=== PATIENT | male | born 1970 | race Caucasian/White ===

== ENCOUNTER 2020-07-20 12:57 | Emergency (ER) | payer OTHER ==
[2020-07-20] MEDS ORDERED: Ketorolac 60 MG/2 ML SDV IM ONE (13:06)
[2020-07-20 13:08] VITALS: BP 146/88; PULSE 66
--- NOTE | 2020-07-20 13:40 | EDM.PDOC ---
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 He can hardly walk on it due to the pain. NO previous injuries to the foot. Right Foot Pain Score (Numeric/FACES): 8 - Related Data Allergies Allergy/AdvReac Type Severity Reaction Status Date / Time Penicillins Allergy Hives Verified 07/20/20 13:10 Home Meds: Home Meds Hydrocodone/Acetaminophen [Hydrocodon-Acetaminophen 5-325] 1 - 2 each PO Q6H #12 tablet 07/20/20 [Rx] Past Medical History - Past Health History Medical/Surgical History: Denies Medical/Surgical History - Past Surgical History GI Surgical History: Reports: Hernia, Inguinal Social & Family History - Family History Family Medical History: Noncontributory - Tobacco Use Smoking Status *Q: Current Every Day Smoker Years of Tobacco use: 30 Packs/Tins Daily: 1 Review of Systems - Review of Systems Review Of Systems: See Below Constitutional: Reports: No Symptoms Eyes: Reports: No Symptoms Ears: Reports: No Symptoms Nose: Reports: No Symptoms Mouth/Throat: Reports: No Symptoms Respiratory: Reports: No Symptoms Cardiovascular: Reports: No Symptoms GI/Abdominal: Reports: Decreased Appetite Genitourinary: Reports: No Symptoms Musculoskeletal: Reports: Foot Pain (right) Skin: Reports: No Symptoms Neurological: Reports: No Symptoms Psychiatric: Reports: No Symptoms ED EXAM, GENERAL - Physical Exam Exam: See Below Exam Limited By: No Limitations General Appearance: Alert, WD/WN, No Apparent Distress (Adult male, obviously in pain with exam.) Ears: Hearing Grossly Normal Nose: Normal Inspection Throat/Mouth: Normal Voice Head: Atraumatic, Normocephalic Neck: Normal Inspection Respiratory/Chest: No Respiratory Distress Cardiovascular: Other (Deferred) GI/Abdominal: Soft (Male) Exam: Deferred Rectal (Males) Exam: Deferred Back Exam: Normal Inspection Extremities: Other (Note bruusing and tenderness to anterior right foot on exam, pulses palpable. Pain with ROM.) Neurological: Alert, Oriented, CN II-XII Intact Psychiatric: Normal Affect, Normal Mood Skin Exam: Warm, Dry, Intact, Normal Color Lymphatic: No Adenopathy Course - Vital Signs Text/Narrative:: The patient was seen by the [facility]. Xray ordered. He was given Toradol 60mg IM for pain. 1450 Xray reviewed, no acute fx noted. Patient reports that he has had an improvement in pain. Long wrap applied. Questions answered. Discharge instructions were given and the patient left the ER in stable condition. Last Recorded V/S: Last Vital Signs Temp 36.4 C 07/20/20 13:00 Pulse 66 07/20/20 13:00 Resp 20 07/20/20 13:00 BP 146/88 H 07/20/20 13:00 Pulse Ox 98 07/20/20 13:00 - Orders/Labs/Meds Meds: Medications Discontinued Medications Generic Name Dose Route Start Last Admin Trade Name Neeraj PRN Reason Stop Dose Admin Ketorolac Tromethamine 60 mg 07/20/20 13:06 07/20/20 13:18 Toradol IM 07/20/20 13:07 60 mg ONETIME ONE Administration Departure - Departure Time of Disposition: 15:07 Disposition: 20 Clinical Impression: Contusion of right foot, initial encounter, Work related injury - Discharge Information *PRESCRIPTION DRUG MONITORING PROGRAM REVIEWED*: Yes *COPY OF PRESCRIPTION DRUG MONITORING REPORT IN PATIENT SHERIF: Not Applicable Prescriptions: Hydrocodone/Acetaminophen [Hydrocodon-Acetaminophen 5-325] 1 - 2 each PO Q6H #12 tablet Instructions: Foot Contusion, How to Use Cold Therapy Referrals: PCP,None [Primary Care Provider] - Forms: ED Department Discharge Additional Instructions: -Ibuprofen 200mg 3 tablets every 6 hours for the next 5-7 days then as needed for pain/inflammation (Use over the counter medication) -Acetaminophen 325 mg 2-3 tablets every 6 hours as needed for between in between ibuprofen (Use over the counter medication) -Hydrocodone/APAP 5/325mg 1-2 tablets every 6 hours as needed for severe pain #12(Rx) -Apply LONG wrap as needed for comfort -Elevate the foot as able and apply ice -You may walk on the foot as you can tolerate. There is no need to avoid bearing weight. -If the pain continues or does not seem to be improving, please follow up with your PCP for further evaluation. -Return to the ER as needed Sepsis Event Note (ED) - Evaluation Sepsis Screening Result: No Definite Risk - Focused Exam Vital Signs: Vital Signs Temp Pulse Resp BP Pulse Ox 07/20/20 13:00 36.4 C 66 20 146/88 H 98
--- NOTE | 2020-07-20 14:06 | CR ---
[id number] RAD/RAD Foot Right 3V Min EXAM: RAD Foot Right 3V Min CLINICAL DATA: TRAUMA COMPARISON: NO PREVIOUS SIMILAR EXAM IS AVAILABLE. FINDINGS: No fracture or dislocation is seen. There is no radiopaque foreign body in the soft tissues. There is no air in the soft tissues. There is no cortical thickening or periosteal reaction either. IMPRESSION: NEGATIVE PLAIN FILM EXAM. Flavio Rodriguez MD 07/20/20 0656 Thank you for allowing us to participate in the care of your patient.
== END 2020-07-20 15:21 | disposition home or self-care (01) ==
LOC: VM.ED 12:57
DX: S90.31XA Contusion of right foot, initial encounter (principal); F17.210 Nicotine dependence, cigarettes, uncomplicated; Z88.0 Allergy status to penicillin; W20.8XXA Other cause of strike by thrown, projected or falling object, initial encounter; Y92.89 Other specified places as the place of occurrence of the external cause; Y99.0 Civilian activity done for income or pay
CPT/HCPCS: 73630; 96372; 99283; J1885